=== PATIENT | male | born 1985 | race Native Hawaiian/Other Pacific Islander ===

== ENCOUNTER 2018-10-29 07:05 | Emergency (ER) | payer BC, MEDICAID ==
[2018-10-29 07:11] VITALS: BP 152/81
--- NOTE | 2018-10-29 07:38 | C.PDOC ---
History Of Present Illness 33 y/o male presents to ED with c/o chest congestion, cough, pleuritic chest pain and posttussive vomiting for 3 days. Patient states he was recently diagnosed with Bronchitis but denies history of asthma. Patient states he started to use albuterol pump for 1st time but is unclear how to use it, given Promethazine and states makes him sleepy. Patient reports persistent chest tightness and denies fever, chills, sob, nausea, vomiting or any other complaints at this time. Time Seen by Provider: 10/29/18 07:22 Chief Complaint (Nursing): Cough, Cold, Congestion History Per: Patient History/Exam Limitations: no limitations Onset/Duration Of Symptoms: Days Current Symptoms Are (Timing): Still Present Associated Symptoms: Cough Past Medical History Reviewed: Historical Data, Nursing Documentation, Vital Signs Vital Signs: Last Vital Signs Temp 100.2 F H 10/29/18 07:10 Pulse 120 H 10/29/18 07:10 Resp 22 10/29/18 07:10 BP 152/81 H 10/29/18 07:10 Pulse Ox 100 10/29/18 07:10 - Medical History PMH: Bronchitis Surgical History: No Surg Hx Family History: States: No Known Family Hx - Social History Hx Alcohol Use: Yes Hx Substance Use: No - Immunization History Hx Tetanus Toxoid Vaccination: No Hx Influenza Vaccination: No Hx Pneumococcal Vaccination: No Review Of Systems Constitutional: Negative for: Fever, Chills Cardiovascular: Positive for: Chest Pain Respiratory: Positive for: Cough, Pleuritic Pain. 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) Skin: Warm, Dry, No Rash Head: Atraumatic, Normacephalic Eye(s): bilateral: Normal Inspection Nose: Normal Oral Mucosa: Moist Throat: Normal, No Erythema, No Exudate Neck: Normal ROM, Supple Cardiovascular: Rhythm Regular, Other (Tachycardic) Respiratory: No Rales, No Rhonchi, Wheezing (occasional ) Gastrointestinal/Abdominal: Soft, No Tenderness, No Guarding, No Rebound Extremity: Normal ROM, No Pedal Edema, Capillary Refill (<2 seconds) Neurological/Psych: Oriented x3, Normal Speech, Normal Cognition ED Course And Treatment ECG: Interpreted By Me, Viewed By Me ECG Rhythm: Sinus Tachycardia Rate From EC (BPM) O2 Sat by Pulse Oximetry: 100 (RA) Pulse Ox Interpretation: Normal - Radiology CXR: Interpreted by Me, Viewed By Me CXR Interpretation: Yes: No Acute Disease. No: Infiltrates Reevaluation Time: 08:52 Reassessment Condition: Improved (IMPROVED BS BL, PS FEELS BETTER. INSTRUCTED ON PROPER MDI USE, SPACER GIVEN.) Disposition Counseled Patient/Family Regarding: Studies Performed, Diagnosis, Need For Followup, Rx Given - Disposition Referrals: YOUR,PMD [Other] Disposition: HOME/ ROUTINE Disposition Time: 08:55 Condition: IMPROVED Prescriptions: Benzonatate [Tessalon Perles] 200 mg PO TID PRN #15 sgl PRN Reason: Cough Ibuprofen [Motrin] 600 mg PO Q6 #30 tab Instructions: Acute Bronchitis, Adult (DC) Forms: [facility] (Chinese), Work Excuse - Clinical Impression Clinical Impression: Bronchospasm, Bronchitis - Scribe Statement The provider has reviewed the documentation as recorded by the Libertad Galvez All medical record entries made by the Frankibdanii were at my direction and personally dictated by me. I have reviewed the chart and agree that the record accurately reflects my personal performance of the history, physical exam, medical decision making, and the department course for this patient. I have also personally directed, reviewed, and agree with the discharge instructions and disposition.
[2018-10-29] MEDS ORDERED: Albuterol-Ipratrop 3 mg / 0.5 (3 ml) UD ONE (08:17)
[2018-10-29] MEDS: Albuterol-Ipratrop 3 mg / 0.5 (3 ml) UD IH SCH (08:17)
[2018-10-29 09:10] VITALS: PULSE 127; RESP 20; TEMP 100.7; O2SAT 99
--- NOTE | 2018-10-29 10:14 | RAD ---
HISTORY: cough COMPARISON: No prior. TECHNIQUE: Chest PA and lateral FINDINGS: LUNGS: No focal consolidation. Please note that chest x-ray has limited sensitivity for the detection of pulmonary masses. PLEURA: No significant pleural effusion identified. No definite pneumothorax . CARDIOVASCULAR: Heart size appears within normal limits. No atherosclerotic calcification present. OSSEOUS STRUCTURES: No acute osseous abnormality identified. VISUALIZED UPPER ABDOMEN: Unremarkable. OTHER FINDINGS: None. IMPRESSION: No focal consolidation.
--- NOTE | 2018-10-30 17:26 | CARD ---
APPROVED REPORT Date of service: 10/29/2018 EKG Measurement Heart [id number] <Conclusion> Sinus tachycardia Incomplete right bundle branch block Borderline ECG
== END 2018-10-29 09:19 | disposition home or self-care (01) ==
LOC: C.ER 07:05
DX: J98.01 Acute bronchospasm (principal); J40 Bronchitis, not specified as acute or chronic